=== PATIENT | male | born 1975 | race Caucasian/White ===

== ENCOUNTER 2017-06-14 08:08 | Emergency (ER) | payer BC ==
[2017-06-14 08:29] VITALS: BP 153/85
--- NOTE | 2017-06-14 08:56 | UC ---
Roque Lima Julia, scribed for Harry Nguyen MD on 06/14/17 at 0841 . Abdominal Pain Male HPI - HPI Summary HPI Summary: This patient is a 42 year old M presenting to [facility] with a chief complaint of severe waxing and waning L sided abdominal pain since 06/12/17. Patient reports fever of 100.5 last night, sore throat, ear ache, and cough. Patient denies n/v/d, hematuria, dysuria, or changes of appetite. The patient rates the pain 3/10 in severity currently but at 10/10 at its worst. Symptoms aggravated by movement. Patient states he blacked out from pain on the evening of 06/12/17. - History of Current Complaint Chief Complaint: UCAbdominalPain Stated Complaint: ABDOMINAL PAIN Time Seen by Provider: 06/14/17 08:33 Hx Obtained From: Patient Onset/Duration: Lasting Days Timing: Intermittent Episodes Lasting: - waxing and waning abdominal pain Pain Intensity: 10 - at worst Pain Scale Used: 0-10 Numeric Location: Discrete At: LUQ, Discrete At: LLQ Aggravating Factor(s): Movement Associated Signs And Symptoms: Positive: Other - cold symptoms - Allergies/Home Medications Allergies/Adverse Reactions: Allergies Allergy/AdvReac Type Severity Reaction Status Date / Time No Known Allergies Allergy Verified 06/14/17 08:30 Home Medications: Home Medications Levothyroxine TAB* [Synthroid 150 MCG TAB*] 300 mcg PO DAILY 06/14/17 [History Confirmed 06/14/17] PMH/Surg Hx/FS Hx/Imm Hx Previously Healthy: Yes - Surgical History Surgical History: None Surgery Procedure, Year, and Place: Thyroidectomy - Family History Known Family History: Positive: Other - stomach CA, grandfather - Social History Occupation: Employed Full-time Alcohol Use: None Substance Use Type: None Smoking Status (MU): Current Some Day Smoker Review of Systems Constitutional: Fever ENT: Sore Throat, Ear Ache Respiratory: Cough Gastrointestinal: Negative - n/v/d, Abdominal Pain Genitourinary: Negative All Other Systems Reviewed And Are Negative: Yes Physical Exam Triage Information Reviewed: Yes Appearance: Obese Vital Signs: Initial Vital Signs Temp 98.3 F 06/14/17 08:23 Pulse 90 06/14/17 08:23 Resp 20 06/14/17 08:23 BP 153/85 06/14/17 08:23 Pulse Ox 98 06/14/17 08:23 Vital Signs Reviewed: Yes Neck: Positive: Supple Respiratory: Positive: Lungs clear, Normal breath sounds Cardiovascular: Positive: RRR, No Murmur Abdomen Description: Positive: Other: - tender left upper quadrant and left flank area Musculoskeletal: Positive: ROM Intact Neurological: Positive: Alert, Muscle Tone Normal Psychological: Positive: Age Appropriate Behavior Skin Exam: Normal Abd Pain Male Course/Dx - Course Course Of Treatment: 42 yr old male with abdominal pain, syncope two days ago that may have been vasovagal during severe abdominal pain. with his history of fever and abdominal pain worse wtih walking and movement he should go to the ER for labs and CT contrast. He signed out [facility] refusing ambulance transport with the history of recent syncope with the abdominal pain. - Differential Dx/Clinical Impression Provider Diagnoses: abdominal pain. Syncope. Discharge - Discharge Plan Condition: Good Disposition: AGAINST MEDICAL ADVICE Referrals: Luz Poe MD [Primary Care Provider] - The documentation as recorded by the Roque pandey Julia accurately reflects the service I personally performed and the decisions made by Wendy gerardo Walter, MD.
== END 2017-06-14 08:47 | disposition left against medical advice (07) ==
LOC: UCEAST 08:08
DX: R10.9 Unspecified abdominal pain (principal); R00.1 Bradycardia, unspecified; Z53.21 Procedure and treatment not carried out due to patient leaving prior to being seen by health care provider
CPT/HCPCS: 99212; G0463

== ENCOUNTER 2017-06-14 09:12 | Emergency (ER) | payer BC ==
[2017-06-14 09:32] VITALS: BP 120/88
== END 2017-06-14 10:16 | disposition left against medical advice (07) ==
LOC: ED 09:12
DX: R10.9 Unspecified abdominal pain (principal); Z53.21 Procedure and treatment not carried out due to patient leaving prior to being seen by health care provider